=== PATIENT | female | born 1975 | race Caucasian/White ===

== ENCOUNTER → 2024-08-04 19:35 | Outpatient (REF) | payer OTHER, SELFPAY | LOC: WDC 19:35 | PROVIDERS: ATTENDING PHYSICIAN Internal Medicine Hematology & Oncology | DX: Z12.31 Encounter for screening mammogram for malignant neoplasm of breast (principal) | CPT/HCPCS: 77063; 77067 ==

== ENCOUNTER → 2025-07-26 12:44 | Outpatient (REF) | payer OTHER, SELFPAY | LOC: HWRAD 12:44 | PROVIDERS: ATTENDING PHYSICIAN Obstetrics & Gynecology; FAMILY PHYSICIAN Physician Assistant Medical | DX: N95.0 Postmenopausal bleeding (principal) | CPT/HCPCS: 76830; 76856 ==

== ENCOUNTER 2025-08-02 06:26 | Day surgery (SDC) | payer OTHER, SELFPAY ==
[2025-07-29 14:09] VITALS: BMI 21.9
[2025-07-29 14:37] LABS: Hematocrit 35.2 % (37.0-47.0); Hemoglobin 11.7 g/dL (12.0-16.0); Mean Corp Hgb Conc. 33.2 g/dL (33.0-37.0); Mean Corpuscular Volume 86.9 fL (81.0-99.0); Nucleated Red Blood Cells % 0 %; Platelet Count 245 10^3/uL (130-400); Red Cell Dist. Width 13.3 % (11.5-14.5)
[2025-07-29 14:49] LABS: INR 1.05; PT 14.0 Sec (11.4-14.6)
[2025-07-29 14:50] LABS: APTT 27.7 Sec (23.4-35.0)
[2025-08-02] VITALS (9 sets, daily range): BP systolic 102–124; BP diastolic 57–77; BMI 21.9
[2025-08-02] MEDS: TYLENOL 1000 MG PO (14:04)
[2025-08-02] MEDS: NORMOSOL-R/PLASMALYTE-A 1000 IV (14:05)
[2025-08-02] MEDS: EMEND 40 MG PO (14:22)
[2025-08-02] MEDS: DILAUDID 0.5 MG IV ×2 (16:43→16:52)
[2025-08-02] MEDS: DILAUDID 2 MG PO (17:43)
== END 2025-08-02 18:23 | disposition home or self-care (01) ==
LOC: SDS 06:26
PROVIDERS: ATTENDING PHYSICIAN Obstetrics & Gynecology; FAMILY PHYSICIAN Physician Assistant Medical
DX: N88.2 Stricture and stenosis of cervix uteri (principal); N95.0 Postmenopausal bleeding; Z79.810 Long term (current) use of selective estrogen receptor modulators (SERMs)
CPT/HCPCS: 58558; 36415; 85025; 85610; 85730; 88305

== ENCOUNTER → 2025-08-08 18:56 | Outpatient (REF) | payer OTHER, SELFPAY | LOC: WDC 18:56 | PROVIDERS: ATTENDING PHYSICIAN Internal Medicine Hematology & Oncology | DX: Z12.31 Encounter for screening mammogram for malignant neoplasm of breast (principal) | CPT/HCPCS: 77063; 77067 ==

== ENCOUNTER → 2025-08-11 10:43 | Outpatient (REF) | payer SELFPAY | LOC: RAD 10:43 | PROVIDERS: ATTENDING PHYSICIAN Physician Assistant Medical | DX: M79.641 Pain in right hand (principal) | CPT/HCPCS: 93971 ==